=== PATIENT | female | born 1965 | race Caucasian/White ===

== ENCOUNTER → 2016-08-15 | Outpatient (REF) | payer BC ==
[2016-08-15 18:12] LABS: FERRITIN 214 NG/ML (8-252); PERCENT SATURATION 25.6 % (13.2-37.4); TOTAL IRON BINDING CAPACITY 359 UG/DL (250-450); TOTAL PROTEIN 7.1 GM/DL (6.4-8.2)
[2016-08-19 11:15] LABS: ALBUMIN 4.19 GM/DL (3.29-5.55); GAMMA GLOBULIN % 18.7 % (11.1-18.8)
[2016-08-20 14:14] LABS: FREE KAPPA LIGHT CHAINS SERUM 16.1 mg/L (3.30-19.40); FREE LAMBDA LIGHT CHAINS SERUM 19.36 mg/L (5.71-26.30); KAPPA/LAMBDA RATIO SERUM 0.83 (0.26-1.65)
== END ==
LOC: M LAB REF 16:58
PROVIDERS: ATTEND Internal Medicine Medical Oncology
DX: R93.0 Abnormal findings on diagnostic imaging of skull and head, not elsewhere classified (principal)

== ENCOUNTER → 2017-01-02 | Outpatient (CLI) | payer BC ==
--- NOTE | 2017-01-02 14:55 | REPMRS ---
Patient History The patient states she had a clinical breast exam in 12/2016. Family history of breast cancer in maternal cousin at age 50 or over. Reductions of both breasts, July 05, 2016. Benign ultrasound-guided FNA biopsy of the right breast, 2001. Digital Woman Screen Mammo: January 02, 2017 - Exam #: [id number] Bilateral CC and MLO view(s) were taken. Technologist: Lynn Bryant, Technologist Prior study comparison: September 07, 2015, left breast digital mammo diagnostic unilateral, performed at [facility]. September 04, 2015, digital woman screen mammo performed at [facility]. FINDINGS: The breast tissue is heterogeneously dense. This may lower the sensitivity of mammography. There has been no change in the appearance of the mammogram from the prior studies. There is a moderate amount of residual fibroglandular tissue which is fairly symmetric. There is no interval development of dominant mass, areas of architectural distortion, or clustered microcalcification typical of malignancy. ASSESSMENT: BI-RADS/ACR category 1 mammogram. Negative. Recommendation Routine screening mammogram in 1 year (for women over age 40). This mammogram was interpreted with the aid of an FDA-approved computer-aided dectection system. Electronically Signed By: Tae Wang MD 01/02/17 [id number]
== END ==
LOC: M WHC 13:40
PROVIDERS: ATTEND Nurse Practitioner Women's Health
DX: Z12.31 Encounter for screening mammogram for malignant neoplasm of breast (principal)

== ENCOUNTER → 2017-02-22 | Outpatient (REF) | payer BC | LOC: M LAB REF 17:16 | PROVIDERS: ATTEND Physician Assistant Medical | DX: N30.01 Acute cystitis with hematuria (principal) ==

== ENCOUNTER → 2017-10-07 | Outpatient (REF) | payer BC ==
[2017-10-07 19:54] LABS: BASO # 0.1 10^3/uL (0.0-0.2); BASO % 1.1 % (0.0-1.0); EOS # 0.2 10^3/uL (0.0-0.50); EOS % 2.4 % (0.0-3.0); HEMATOCRIT 49.4 % (36.0-47.0); HEMOGLOBIN 15.7 g/dl (12.0-16.0); IMMATURE GRANULOCYTE % 0.5 % (0-3.0); LYMPH # 3.3 10^3/uL (1.5-4.5); LYMPH % 42.2 % (24.0-44.0); MEAN CORPUSCULAR HEMOGLOBIN 29.4 pg (27.0-33.0); MEAN CORPUSCULAR HGB CONC 31.8 g/dl (32.0-36.5); MEAN CORPUSCULAR VOLUME 92.5 fl (80.0-96.0); MONO # 0.5 10^3/uL (0.0-0.8); MONO % 6.2 % (0.0-5.0); NEUTROPHILS # 3.7 10^3/uL (1.8-7.7); NEUTROPHILS % 47.6 % (36.0-66.0); PLATELET COUNT, AUTOMATED 336 10^3/uL (150-450); RED BLOOD COUNT 5.34 10^6/uL (4.00-5.40); RED CELL DISTRIBUTION WIDTH 12.6 % (11.5-14.5); WHITE BLOOD COUNT 7.9 10^3/uL (4.0-10.0)
[2017-10-07 20:20] LABS: ALBUMIN 4.1 GM/DL (3.2-5.2); ALBUMIN/GLOBULIN RATIO 1.14 (1.00-1.93); ALKALINE PHOSPHATASE 73 U/L (45-117); ALT/SGPT 24 U/L (12-78); ANION GAP 6 MEQ/L (8-16); AST/SGOT 17 U/L (7-37); BILIRUBIN,TOTAL 0.6 MG/DL (0.2-1.0); BLOOD UREA NITROGEN 12 MG/DL (7-18); CALCIUM LEVEL 8.7 MG/DL (8.5-10.1); CARBON DIOXIDE LEVEL 29 MEQ/L (21-32); CHLORIDE LEVEL 108 MEQ/L (98-107); CHOLESTEROL LEVEL 205 MG/DL (<200); CHOLESTEROL RISK RATIO 3.306 (<5); CREATININE FOR GFR 0.88 MG/DL (0.55-1.30); FREE T4 0.95 NG/DL (0.76-1.46); GLOMERULAR FILTRATION RATE > 60.0 (>51); GLUCOSE, FASTING 89 MG/DL (70-100); HDL CHOLESTEROL 62 MG/DL (>40); LDL CHOLESTEROL 126.6 MG/DL (<100); NON-HDL-C 143 MG/DL; POTASSIUM SERUM 4.4 MEQ/L (3.5-5.1); SODIUM LEVEL 143 MEQ/L (136-145); TOTAL PROTEIN 7.7 GM/DL (6.4-8.2); TRIGLYCERIDES LEVEL 82 MG/DL (<150)
== END ==
LOC: M LABDRWAD 19:24
DX: Z13.29 Encounter for screening for other suspected endocrine disorder (principal); Z13.0 Encounter for screening for diseases of the blood and blood-forming organs and certain disorders involving the immune mechanism; Z13.220 Encounter for screening for lipoid disorders
CPT/HCPCS: 84443

== ENCOUNTER → 2018-01-05 | Outpatient (CLI) | payer BC | LOC: M WHC 08:04 | DX: Z12.31 Encounter for screening mammogram for malignant neoplasm of breast (principal); Z98.890 Other specified postprocedural states | CPT/HCPCS: 77067 ==

== ENCOUNTER → 2019-01-06 | Outpatient (CLI) | payer BC ==
--- NOTE | 2019-01-06 09:41 | REPMRS ---
Patient History The patient states she had a clinical breast exam in 12/2018. Family history of breast cancer at age 60 in paternal aunt. Reductions of both breasts, July 05, 2016. Benign ultrasound-guided FNA biopsy of the right breast, 2001. No Hormone Replacement Therapy Digital Woman Screen Mammo: January 06, 2019 - Exam #: [id number] Bilateral CC and MLO view(s) were taken. Technologist: Lynn Bryant, Technologist Prior study comparison: January 05, 2018, bilateral digital woman screen mammo performed at [facility]. January 02, 2017, digital woman screen mammo performed at [facility]. September 04, 2015, digital woman screen mammo performed at [facility]. FINDINGS: The breast tissue is heterogeneously dense. This may lower the sensitivity of mammography. There is a moderate amount of heterogeneously dense fibroglandular tissue which is fairly symmetric. There is no interval development of dominant mass, architectural distortion, or grouped microcalcification typical of malignancy. There has been no change in the appearance of the mammogram from the prior studies. 3-D tomosynthesis shows no additional findings. Assessment: BI-RADS/ACR category 1 mammogram. Negative Mammogram. Recommendation Routine screening mammogram of both breasts in 1 year (for women over age 40). This patient's Lifetime Breast Cancer RIsk is estimated at 13.3 %. This mammogram was interpreted with the aid of an FDA-approved computer-aided dectection system. Electronically Signed By: Augustus Lezama MD 01/06/19 0941
== END ==
LOC: M WHC 08:10
PROVIDERS: ATTEND Nurse Practitioner Women's Health
DX: Z12.31 Encounter for screening mammogram for malignant neoplasm of breast (principal)

== ENCOUNTER 2019-01-29 16:30 | Observation (INO) | payer BC ==
[~2019-01-29] VITALS: Ht 160 cm; Wt 70.3 kg
--- NOTE | 2019-01-29 17:20 | REPVR ---
EXAM: CT Head Without Contrast EXAM DATE/TIME: 01/29/2019 5:07 PM CLINICAL HISTORY: 53 years old, female; Pain; Numbness / parasthesia; Right; Headache not specified; Additional info: Right-sided facial numbness/headache TECHNIQUE: Imaging protocol: Computed tomography images of the head without contrast. Radiation optimization: All CT scans at this facility use at least one of these dose optimization techniques: automated exposure control; mA and/or kV adjustment per patient size (includes targeted exams where dose is matched to clinical indication); or iterative reconstruction. COMPARISON: No relevant prior studies available. FINDINGS: Brain: Normal. No hemorrhage. Unremarkable white matter. No mass effect. Ventricles: Normal. No ventriculomegaly. Bones/joints: There is hyperostosis frontalis interna. Sinuses: Visualized sinuses are unremarkable. No fluid levels. Mastoid air cells: Visualized mastoid air cells are well aerated. No mastoid effusion. Soft tissues: Unremarkable. IMPRESSION: No acute findings. Electronically signed by: Diaz Isabel On 01/29/2019 17:20:20 PM
[2019-01-29] MEDS ORDERED: ACETAMINOPHEN 500 MG TAB PO ONE (18:15)
[2019-01-29] MEDS ORDERED: NS 1,000 ML IV ONE (18:15)
[2019-01-29 18:39] LABS: BASO # 0.1 10^3/uL (0.0-0.2); BASO % 0.9 % (0.0-1.0); EOS # 0.2 10^3/uL (0.0-0.50); EOS % 2.2 % (0.0-3.0); HEMATOCRIT 46.1 % (36.0-47.0); HEMOGLOBIN 15.4 g/dl (12.0-15.5); LYMPH # 3.3 10^3/uL (1.5-4.5); LYMPH % 35.1 % (24.0-44.0); MEAN CORPUSCULAR HEMOGLOBIN 30.4 pg (27.0-33.0); MEAN CORPUSCULAR HGB CONC 33.4 g/dl (32.0-36.5); MEAN CORPUSCULAR VOLUME 91.1 fl (80.0-96.0); MONO # 0.6 10^3/uL (0.0-0.8); MONO % 6.8 % (0.0-5.0); NEUTROPHILS # 5.1 10^3/uL (1.8-7.7); NEUTROPHILS % 54.7 % (36.0-66.0); PLATELET COUNT, AUTOMATED 297 10^3/uL (150-450); RED BLOOD COUNT 5.06 10^6/uL (4.00-5.40); WHITE BLOOD COUNT 9.4 10^3/uL (4.0-10.0)
[2019-01-29 19:00] LABS: ERYTHROCYTE SEDIMENTATION RATE 5 mm/hr (0-30)
[2019-01-29 19:16] LABS: ALBUMIN 3.8 GM/DL (3.2-5.2); ALT/SGPT 26 U/L (12-78); BILIRUBIN,DIRECT < 0.1 MG/DL (0.0-0.2); BILIRUBIN,TOTAL 0.2 MG/DL (0.2-1.0); BLOOD UREA NITROGEN 12 MG/DL (7-18); CALCIUM LEVEL 9.3 MG/DL (8.5-10.1); CARBON DIOXIDE LEVEL 28 MEQ/L (21-32); CHLORIDE LEVEL 107 MEQ/L (98-107); CHOLESTEROL LEVEL 176 MG/DL (<200); CHOLESTEROL RISK RATIO 2.626 (<5); CK-MB VALUE MASS < 1.0 NG/ML (<3.6); CPK CREATINE PHOSPHOKINASE 54 U/L (26-192); GLOMERULAR FILTRATION RATE > 60.0 (>51); GLUCOSE, FASTING 100 MG/DL (70-100); HDL CHOLESTEROL 67 MG/DL (>40); LDL CHOLESTEROL 87 MG/DL (<100); MB/CK RELATIVE INDEX 1.85 (< OR =4); NON-HDL-C 109 MG/DL; POTASSIUM SERUM 4.3 MEQ/L (3.5-5.1); SODIUM LEVEL 143 MEQ/L (136-145); TOTAL PROTEIN 7.3 GM/DL (6.4-8.2); TRIGLYCERIDES LEVEL 109 MG/DL (<150); TROPONIN I < 0.02 NG/ML (< 0.10)
--- NOTE | 2019-01-29 20:14 | REPVR ---
EXAM: MR Head Without Contrast EXAM DATE/TIME: 01/29/2019 7:53 PM CLINICAL HISTORY: 53 years old, female; Numbness / parasthesia and weakness, extremity and weakness, facial; Left; Additional info: Right sided numbness to face and rue, TIA? TECHNIQUE: Imaging protocol: MR of the head without contrast. COMPARISON: CT Head without contrast 01/29/2019 5:06 PM FINDINGS: Brain: Diffuse abnormal signal in the subcortical centrum semiovale and periventricular white matter which in the absence of significant white matter disease but reflect global right matter ischemia. Few small scattered foci of T2 lengthening in the periventricular white matter of uncertain significance. Ventricles: Normal. No ventriculomegaly. Bones/joints: Unremarkable. Soft tissues: Normal. Sinuses: Normal as visualized. No acute sinusitis. Mastoid air cells: Normal as visualized. No mastoid effusion. Orbits: Unremarkable. IMPRESSION: Diffuse abnormal signal in the subcortical centrum semiovale and periventricular white matter which in the absence of significant white matter disease but reflect global right matter ischemia. Electronically signed by: Diaz Isabel On 01/29/2019 20:14:15 PM
--- NOTE | 2019-01-29 20:22 | REPVR ---
EXAM: MR Angiogram Head Without Contrast, Arteries EXAM DATE/TIME: 01/29/2019 7:53 PM CLINICAL HISTORY: 53 years old, female; Paralysis, transient of limb and weakness; Additional info: Right sided numbness to face and rue, TIA? TECHNIQUE: Imaging protocol: MR angiogram head without contrast. Exam focused on the arteries. 3D rendering: MIP reconstructed images were created and reviewed. COMPARISON: CT Head without contrast 01/29/2019 5:06 PM FINDINGS: Right internal carotid artery: Unremarkable. Intracranial segment is patent with no significant stenosis. No aneurysm. Right anterior cerebral artery: Unremarkable. No occlusion or significant stenosis. No aneurysm. Right middle cerebral artery: Unremarkable. No occlusion or significant stenosis. No aneurysm. Right posterior cerebral artery: Unremarkable. No occlusion or significant stenosis. No aneurysm. Right vertebral artery: Unremarkable. No occlusion or significant stenosis. No aneurysm. Left internal carotid artery: Unremarkable. Intracranial segment is patent with no significant stenosis. No aneurysm. Left anterior cerebral artery: Unremarkable. No occlusion or significant stenosis. No aneurysm. Left middle cerebral artery: Unremarkable. No occlusion or significant stenosis. No aneurysm. Left posterior cerebral artery: Unremarkable. No occlusion or significant stenosis. No aneurysm. Left vertebral artery: Unremarkable. No occlusion or significant stenosis. No aneurysm. Basilar artery: Unremarkable. No occlusion or significant stenosis. No aneurysm. IMPRESSION: No acute findings. Electronically signed by: Diaz Isabel On 01/29/2019 20:21:36 PM
[2019-01-29] MEDS: LORATADINE 10 MG TAB PO SCH (21:00)
[2019-01-29] MEDS: guaiFENesin ER 600 MG TAB PO SCH (21:00)
[2019-01-29] MEDS ORDERED: PERCOCET 5MG/325MG TAB PO ONE (21:00)
[2019-01-29] MEDS ORDERED: ATORVASTATIN 20 MG TAB PO SCH (21:00)
--- NOTE | 2019-01-29 21:21 | ECGEPIP ---
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
--- NOTE | 2019-01-29 21:41 | HPEPDOC ---
General Date of Admission 01/29/2019 Date of Service: Jan 29, 2019 Primary Care Physician: CONNOR POLLOCK DO Attending Physician: GREER FOX MD Chief Complaint The patient is a 53-year-old female admitted with a reason for visit of Neuro Symptoms. History of Present Illness Patient is a 53-year-old female, without any past medical history, presenting to the emergency room on account of right upper extremity weakness and numbness while shopping today. Patient states she was out shopping with friends when she had sudden onset of blurry vision, right facial numbness, with right arm numbness lasting about 20 minutes. During the event. She was unable to take out her credit card with her right hand and had to maintain her balance with a shop ping cart. She tried to return to work but was very tired, so went to the urgent care with her where she was redirected to the emergency room for further evaluation and management. Laboratory data was within normal limits, CT brain was negative, subsequent MRI was abnormal for signal intensity. However, there was no focal defect. Of note, patient states 7 weeks ago. Brother had spontaneous DVT, PE. He was evaluated for clotting abnormalities, results of those are still pending. She also reports father having a cardiac thrombus for which surgical intervention was aborted. On assessment, she complains only of headache, denies chest pain, shortness of breath, prior weakness, numbness, tingling has resolved. She also complains of postnasal drip with cough for about a week now. Home Medications No Active Prescriptions or Reported Meds Allergies Coded Allergies: No Known Drug Allergies (Verified Allergy, Unknown, 01/29/19) Past Medical History Medical History Denies prior medical history Surgical History Tubal ligation Breast reduction. Arthroplasty Breast biopsy Hysterectomy Family History Father: Hypertension, congenital heart defect, peripheral arterial disease. Mother: Arthritis. Sibling: DVT, PE Social History * Smoker: Denies Alcohol: Denies Drugs: denies A-FIB/CHADSVASC A-FIB History Current/History of A-Fib/PAF?: No Current PO Anticoag Therapy: No Review of Systems Other systems A pertinent 10 point review of systems is completed, negative except as stated in the history of presenting illness Physical Examination Other physical findings GENERAL: NAD SKIN : Warm, dry intact HEENT: Atraumatic, normocephalic, PERRL, moist mucous membrane CARDIOVASCULAR: Regular rate and rhythm, S1S2, no JVD, no edema, distal pulses + palpable RESP: Posterior crackles with cough, no accessory muscle use noted ABDOMEN: BS+ non distended non tender MS: no joint deformities NEURO: Alert and oriented x 3, CN2-12 grossly intact PSYCH: no anxiety or agitation, appropriate mood and affect. Vital Signs Vital Signs Date Time Temp Pulse Resp B/P (MAP) Pulse Ox O2 Delivery O2 Flow Rate FiO2 01/29/19 21:30 18 99 01/29/19 20:11 98.1 72 127/71 (89) Room Air Laboratory Data Labs 24H Laboratory Tests 2 01/29/19 18:33: Immature Granulocyte % (Auto) 0.3, White Blood Count 9.4, Red Blood Count 5.06, Hemoglobin 15.4, Hematocrit 46.1, Mean Corpuscular Volume 91.1, Mean Corpuscular Hemoglobin 30.4, Mean Corpuscular Hemoglobin Concent 33.4, Red Cell Distribution Width 12.9, Platelet Count 297, Neutrophils (%) (Auto) 54.7, Lymphocytes (%) (Auto) 35.1, Monocytes (%) (Auto) 6.8H, Eosinophils (%) (Auto) 2.2, Basophils (%) (Auto) 0.9, Neutrophils # (Auto) 5.1, Lymphocytes # (Auto) 3.3, Monocytes # (Auto) 0.6, Eosinophils # (Auto) 0.2, Basophils # (Auto) 0.1, Nucleated Red Blood Cells % (auto) 0.0, Erythrocyte Sedimentation Rate 5, Anion Gap 8, Glomerular Filtration Rate > 60.0, Calcium Level 9.3, Aspartate Amino Transf (AST/SGOT) 20, Alanine Aminotransferase (ALT/SGPT) 26, Alkaline Phosphatase 67, Total Bilirubin 0.2, Direct Bilirubin < 0.1, Total Creatine Kinase 54, Creatine Kinase MB < 1.0, Creatine Kinase MB Relative Index 1.85, Troponin I < 0.02, C- Reactive Protein, Quantitative 0.30, Total Protein 7.3, Albumin 3.8, Albumin/Globulin Ratio 1.09, Triglycerides Level 109, Total Cholesterol 176, LDL Cholesterol 87, Non-HDL Cholesterol (LDL + VLDL) 109, Total HDL Cholesterol 67, Cholesterol/HDL Ratio 2.626 CBC/BMP Laboratory Tests 01/29/19 18:33 Red Blood Count 5.06, Mean Corpuscular Volume 91.1, Mean Corpuscular Hemoglobin 30.4, Mean Corpuscular Hemoglobin Concent 33.4, Red Cell Distribution Width 12.9, Neutrophils (%) (Auto) 54.7, Lymphocytes (%) (Auto) 35.1, Monocytes (%) (Auto) 6.8 H, Eosinophils (%) (Auto) 2.2, Basophils (%) (Auto) 0.9, Neutrophils # (Auto) 5.1, Lymphocytes # (Auto) 3.3, Monocytes # (Auto) 0.6, Eosinophils # (Auto) 0.2, Basophils # (Auto) 0.1 Assessment/Plan TIA -CT brain negative for acute intracranial process. -MRI brain abnormal for signal intensity -2-D echocardiogram to evaluate for structural heart defects, rule out regional wall motion abnormalities -Carotid Doppler to evaluate for vascular competency - neurology will need to be consulted in the am for further input evaluation, recommendations -Place on aspirin, statin Cough -Possibly due to seasonal allergies -Start patient on antitussive DVT prophylaxis -Lovenox 40 mg daily Advanced care planning -CODE STATUS is full resuscitation -Anticipated discharge to home based on neurology recommendations, findings of 2-D echocardiogram and carotid Doppler Plan / VTE VTE Prophylaxis Ordered?: Yes RIYA LIN [facility] Jan 29, 2019 21:41
--- NOTE | 2019-01-29 22:48 | REPVR ---
EXAM: US Duplex Bilateral Extracranial Arteries EXAM DATE/TIME: 01/29/2019 10:34 PM CLINICAL HISTORY: 53 years old, female; Other: TIA TECHNIQUE: Imaging protocol: Real-time Duplex ultrasound scan of the Bilateral carotid and vertebral arteries combining martinez scale, color Doppler and spectral waveform analysis. COMPARISON: CT Head without contrast 01/29/2019 5:06 PM FINDINGS: Right common carotid artery: Unremarkable. No occlusion or stenosis. Waveforms are normal. Right internal carotid artery: Minimal atherosclerotic plaque in the bulb. No occlusion or stenosis. Waveforms are normal. Right ICA/CCA ratio: Within normal limits. Right external carotid artery: No stenosis in the origin. Right vertebral artery: Unremarkable. Antegrade flow Left common carotid artery: Unremarkable. No occlusion or stenosis. Waveforms are normal. Left internal carotid artery: Minimal atherosclerotic plaque in the bulb. No occlusion or stenosis. Waveforms are normal. Left ICA/CCA ratio: Within normal limits. Left external carotid artery: No stenosis in the origin. Left vertebral artery: Unremarkable. Antegrade flow. IMPRESSION: Minimal plaque in both carotid bulbs. No carotid arterial stenosis. COMMENT: Carotid Stenosis Reference using SRU criteria: Mild: less than 50% stenosis. ICA PSV is less than 125 cm/second and plaque or intimal thickening is visible. Moderate: 50-69% stenosis. ICA PSV is 125 to 230 cm/second and plaque is visible. Severe: 70-94% stenosis. ICA PSV is more than 230 cm/second and visible plaque and lumen narrowing are seen. Near occlusion: 95-99% stenosis. ICA PSV is variable and significant plaque and luminal narrowing are seen. Occluded: 100% stenosis. No flow identified. Electronically signed by: Diaz Isabel On 01/29/2019 22:47:12 PM
[2019-01-30 02:58] VITALS: BP 128/84
[2019-01-30 06:00] VITALS: BP 119/78
[2019-01-30 06:22] LABS: HEMATOCRIT 44.7 % (36.0-47.0); HEMOGLOBIN 14.9 g/dl (12.0-15.5); MEAN CORPUSCULAR HEMOGLOBIN 30.5 pg (27.0-33.0); MEAN CORPUSCULAR HGB CONC 33.3 g/dl (32.0-36.5); MEAN CORPUSCULAR VOLUME 91.6 fl (80.0-96.0); PLATELET COUNT, AUTOMATED 267 10^3/uL (150-450); RED BLOOD COUNT 4.88 10^6/uL (4.00-5.40); WHITE BLOOD COUNT 8.7 10^3/uL (4.0-10.0)
[2019-01-30 06:50] LABS: ALBUMIN 3.3 GM/DL (3.2-5.2); ALT/SGPT 23 U/L (12-78); BILIRUBIN,TOTAL 0.4 MG/DL (0.2-1.0); BLOOD UREA NITROGEN 9 MG/DL (7-18); CALCIUM LEVEL 8.2 MG/DL (8.5-10.1); CARBON DIOXIDE LEVEL 29 MEQ/L (21-32); CHLORIDE LEVEL 109 MEQ/L (98-107); CREATININE FOR GFR 0.72 MG/DL (0.55-1.30); GLOMERULAR FILTRATION RATE > 60.0 (>51); GLUCOSE, FASTING 97 MG/DL (70-100); POTASSIUM SERUM 4.4 MEQ/L (3.5-5.1); SODIUM LEVEL 141 MEQ/L (136-145); TOTAL PROTEIN 6.6 GM/DL (6.4-8.2)
[2019-01-30 08:43] LABS: INR 1.06; PROTHROMBIN TIME 13.5 SECONDS (11.8-14.0)
[2019-01-30] MEDS ORDERED: ENOXAPARIN 40 MG/0.4 ML SYRINGE (J1650) SC SCH (09:00)
[2019-01-30] MEDS ORDERED: ASPIRIN 81 MG ENTERIC TAB PO SCH (09:00)
[2019-01-30] MEDS: guaiFENesin ER 600 MG TAB PO SCH (10:24)
[2019-01-30] MEDS: LORATADINE 10 MG TAB PO SCH (10:24)
[2019-01-30] MEDS ORDERED: ACETAMINOPHEN TAB 650MG DOSE (2X325MG) PO PRN (11:00)
--- NOTE | 2019-01-30 13:59 | IPNPDOC ---
Subjective Date Seen The patient was seen on 01/30/19. Assessment /Plan Plan/VTE VTE Prophylaxis Ordered?: Yes VS, I&O, 24H, [place] Vital Signs/I&O Vital Signs Date Time Temp Pulse Resp B/P (MAP) Pulse Ox O2 Delivery O2 Flow Rate FiO2 01/30/19 06:00 97.9 71 19 119/78 (92) 98 01/30/19 01:10 Room Air I&O- Last 24 Hours up to 6 AM 01/30/19 06:00 Intake Total 200 ml Balance 200 ml Laboratory Data 24H LABS Laboratory Tests 2 01/29/19 18:33: Immature Granulocyte % (Auto) 0.3, White Blood Count 9.4, Red Blood Count 5.06, Hemoglobin 15.4, Hematocrit 46.1, Mean Corpuscular Volume 91.1, Mean Corpuscular Hemoglobin 30.4, Mean Corpuscular Hemoglobin Concent 33.4, Red Cell Distribution Width 12.9, Platelet Count 297, Neutrophils (%) (Auto) 54.7, Lymphocytes (%) (Auto) 35.1, Monocytes (%) (Auto) 6.8H, Eosinophils (%) (Auto) 2.2, Basophils (%) (Auto) 0.9, Neutrophils # (Auto) 5.1, Lymphocytes # (Auto) 3.3, Monocytes # (Auto) 0.6, Eosinophils # (Auto) 0.2, Basophils # (Auto) 0.1, Nucleated Red Blood Cells % (auto) 0.0, Erythrocyte Sedimentation Rate 5, Anion Gap 8, Glomerular Filtration Rate > 60.0, Calcium Level 9.3, Aspartate Amino Transf (AST/SGOT) 20, Alanine Aminotransferase (ALT/SGPT) 26, Alkaline Phosphatase 67, Total Bilirubin 0.2, Direct Bilirubin < 0.1, Total Creatine Kinase 54, Creatine Kinase MB < 1.0, Creatine Kinase MB Relative Index 1.85, Troponin I < 0.02, C- Reactive Protein, Quantitative 0.30, Total Protein 7.3, Albumin 3.8, A lbumin/Globulin Ratio 1.09, Triglycerides Level 109, Total Cholesterol 176, LDL Cholesterol 87, Non-HDL Cholesterol (LDL + VLDL) 109, Total HDL Cholesterol 67, Cholesterol/HDL Ratio 2.626 01/30/19 05:30: Nucleated Red Blood Cells % (auto) 0.0, Anion Gap 3L, Glomerular Filtration Rate > 60.0, Calcium Level 8.2L, Aspartate Amino Transf (AST/SGOT) 13, Alanine Aminotransferase (ALT/SGPT) 23, Alkaline Phosphatase 59, Total Bilirubin 0.4#, Total Protein 6.6, Albumin 3.3, Albumin/Globulin Ratio 1.00, Blood Urea Nitrogen 9, Creatinine 0.72, Sodium Level 141, Potassium Level 4.4, Chloride Level 109H, Carbon Dioxide Level 29 01/30/19 08:12: Prothrombin Time 13.5, Prothromb Time International Ratio 1.06 CBC/BMP Laboratory Tests 01/29/19 18:33 Red Blood Count 5.06, Mean Corpuscular Volume 91.1, Mean Corpuscular Hemoglobin 30.4, Mean Corpuscular Hemoglobin Concent 33.4, Red Cell Distribution Width 12.9, Neutrophils (%) (Auto) 54.7, Lymphocytes (%) (Auto) 35.1, Monocytes (%) (Auto) 6.8 H, Eosinophils (%) (Auto) 2.2, Basophils (%) (Auto) 0.9, Neutrophils # (Auto) 5.1, Lymphocytes # (Auto) 3.3, Monocytes # (Auto) 0.6, Eosinophils # (A uto) 0.2, Basophils # (Auto) 0.1 01/30/19 05:30 Red Blood Count 4.88, Mean Corpuscular Volume 91.6, Mean Corpuscular Hemoglobin 30.5, Mean Corpuscular Hemoglobin Concent 33.3, Red Cell Distribution Width 12.8, Calcium Level 8.2 L, Aspartate Amino Transf (AST/SGOT) 13, Alanine Aminotransferase (ALT/SGPT) 23, Alkaline Phosphatase 59, Total Bilirubin 0.4 #, Total Protein 6.6, Albumin 3.3 SANDY OROZCO PGY-1 Jan 30, 2019 13:59
[2019-01-30 14:00] VITALS: BP 128/65
--- NOTE | 2019-01-31 07:31 | REP ---
MRI CERVICAL SPINE: Multiple sequences obtained in the sagittal and axial planes without the use of intravenous contrast material. There is no compression fracture of the cervical vertebral bodies, which are well aligned. There is mild disc space narrowing at C5-6 with disc degeneration at that level. Other disc spaces maintained their height. No abnormal signal is seen in the cervical spine cord. At the C5-6 level, there is moderate diffuse disc bulging and uncovertebral spurring. There is mild to moderate spinal stenosis with effacement of the subarachnoid space and slight flattening of the cord. There is mild to moderate right-sided foraminal narrowing as well. Other levels demonstrate no significant disc bulging or herniation and no evidence of spinal stenosis or significant neural foraminal narrowing. Impression: At C5-6 level, there is moderate diffuse disc bulging and uncovertebral spurring with mild to moderate spinal stenosis and right-sided foraminal narrowing. Electronically Signed by Tae Wang MD 01/31/2019 10:23 P
--- NOTE | 2019-01-31 09:34 | ECHO ---
DATE OF SERVICE: 01/30/2019 AGE: 53. REFERRING PROVIDER: DHIRAJ Ramsey PATIENT LOCATION: Room 4235. REASON FOR THE STUDY: Transient ischemic attack (TIA). 2D MEASUREMENTS: IVS: 0.8 cm LV: 4.6 cm LVPW: 0.8 cm LA: 3.1 cm Aorta: 2.9 cm RV: 2.5 cm IVC: 1.4 cm DOPPLER MEASUREMENTS: Peak velocity across the aortic valve: 1.2 m/s Peak velocity across the LVOT: 0.71 m/s Mitral E: 0.53 Mitral A: 0.63 with a ratio of 0.9 2D COMMENTS: 1. Normal left ventricular size, wall thickness, and normal global left ventricular systolic function. The estimated ventricular systolic ejection fraction is 60% to 65%. 2. Normal left atrium. Normal right atrium and right ventricle. 3. The atrial septum appeared to be normal without evidence of defect or shunt. 4. Normal aortic root. 5. No pericardial effusion seen. 6. Normal aortic valve. Mildly calcified mitral annulus with normal anterior mitral valve leaflet motion. Normal tricuspid valve and pulmonic valve. 7. The inferior vena cava was normal in size, central venous pressure is most likely normal. DOPPLER: No significant valvular abnormalities detected but trace mitral regurgitation and trace tricuspid regurgitation. Abnormal relaxation pattern was noted across the mitral valve leaflets, as well as the mitral valve annulus, consistent with features of grade 1 left ventricular diastolic dysfunction. IMPRESSION: 1. Normal global left ventricular systolic function. There are some features of left ventricular diastolic dysfunction manifested by abnormal relaxation. 2. Mitral annulus calcification with trace mitral regurgitation. 3. Trace tricuspid regurgitation. MTDD
--- NOTE | 2019-01-31 14:01 | CR ---
DATE OF CONSULTATION: 01/30/2019 CONSULTATION REQUESTED BY: DHIRAJ Miller. REASON FOR CONSULTATION: Right upper extremity weakness, numbness and blurry vision. HISTORY OF PRESENT ILLNESS: This is a 53-year-old female with no pertinent past medical history presenting to the emergency room on the evening prior for right upper extremity weakness, numbness and vision change earlier in the afternoon yesterday. She states that lasted about relatively 20 minutes. It started out when she was shopping with her friend and she noted a zig-zagged pattern vision change on her right eye. As time progressed, she noticed numbness and tingling sensation in her right fingertips that started to migrate up towards her neck and face. She denies having any weakness in her upper extremity though or other facial droop. She attempted to return to work later that afternoon but because the numbness, tingling, and headache progressed, she decided to go to the urgent care for further evaluation. The recommended from the urgent care to come to the emergency room for further recommendations. She states that her headache, which started after the numbness and tingling and the blurry vision changes was rating at a 4/5. She states that she always gets this during a sinus infection but she denies any histories of migraines. She denies any family history of migraines as well. She denies any focal deficits or any paresthesia in her lower extremity. In the emergency room, CT imaging was negative for an acute stroke. MRI was negative for acute stroke as well. She states that her headache got better earlier this morning. When she was given Tylenol, it went down from a 4-5 to a 1 to a complete 0 after 2 hours. She states that her vision changes and her paresthesia in the right upper extremity has resolved as well. Since she got to the emergency room. PAST MEDICAL HISTORY: None. HOME MEDICATIONS: None. ALLERGIES: No known drug allergies. PAST SURGICAL HISTORY: section. Tubal ligation. Breast reduction. Arthroplasty of the right thumb. Breast biopsy. Hysterectomy. FAMILY HISTORY: Father, hypertension and congenital heart disease, peripheral artery disease. Mother, arthritis. Brother deep venous thrombosis (DVT) and pulmonary embolism. SOCIAL HISTORY: Denies smoking, alcohol or drug use. REVIEW OF SYSTEMS: Denies any weight changes, fever, chills, night sweats, fatigue, malaise. HEENT: Denies ear pain. Admits to sinus congestion, nasal congestion. Denies sore throat, rhinorrhea. Admits to blurry vision in the right eye but no eye pain, swelling redness, or discharge. CARDIOVASCULAR: Denies chest pain, shortness of breath, paroxysmal nocturnal dyspnea (PND), dyspnea on exertion, orthopnea or lower extremity edema. RESPIRATION: Denies cough, sputum, wheezing, smoking history or dyspnea. GASTROINTESTINAL: Denies nausea, vomiting, diarrhea, constipation or abdominal pain. MUSCULOSKELETAL: Denies arthralgia, myalgia, weakness or neck pain. NEUROLOGY: Denies weakness, admits to upper extremity numbness and paresthesia. Denies loss of consciousness, syncope, dizziness, headaches, muscle coordination or recent falls. HEMATOLOGY: Denies bruising or easy bleeding or lymphadenopathy. PHYSICAL EXAMINATION: VITALS: Temperature 97.0, pulse 78, respirations 16, blood pressure 128/65, (86), pulse oximetry 100% in room air. GENERAL: This a very pleasant 53-year-old female who does not appear in any acute distress sitting up on a bed appropriately answering questions. Alert and oriented times three. HEENT: Atraumatic, normocephalic. Pupils equal, round, and reactive. Moist mucous membranes. CARDIOVASCULAR: Regular rate and rhythm. S1, S2 sounds are present. No jugular venous distention (JVD). No lower extremity edema. RESPIRATIONS: Clear to auscultation bilaterally. No audible wheezing, rhonchi, or rales. No accessory muscle use. ABDOMEN: Positive bowel sounds in all four quadrants. Nondistended. Nontender. NEUROLOGY: Alert and oriented times three. Cranial nerves II through XII are grossly intact bilaterally. Muscle strength upper and lower extremity 5/5 with normal deep tendon reflexes (DTR) 2+ in the upper and lower extremities as well. No sensory deficits noted. Lillie test positive to the right. LABORATORY DATA: WBC 8.6, hemoglobin 14.9, hematocrit 44.7, platelets 267. Chemistries: Sodium 141, potassium 4.4, chloride 109, carbon dioxide 29, anion gap 3, BUN 9, creatinine 0.72, fasting glucose 97, calcium 8.2. CMP is within normal limits. IMAGING: CT of the head, brain MRI, brain MRA and vascular ultrasound was negative for any acute stroke. It was only positive for minimal plaque in both carotid bulbs but no carotid atrial stenosis. Cervical spine MRI was reviewed by me and Dr. Angela, which does show a right disc herniation at the C5-6 area. Official report is currently still pending. ASSESSMENT/PLAN: This is a 53-year-old female with no pertinent past medical history who presented to the emergency room for right upper extremity paresthesia and vision changes followed by headache. These are the following recommendations: 1. Transient hemiparesthesia of the right upper extremity is positional in nature, possibly a prodrome to her migraines. I believe the patient has a complex migraine with aura and her transient hemiparesis is prodrome from cortical depression. Recommendations include to stop Lipitor and aspirin. Her symptoms resolved with actual Tylenol early this afternoon. Can continue with Tylenol as needed for headaches. If they become more recurrent in nature, can be evaluated by Neurology outpatient for other therapy. I believe the patient is stable to actually be discharged today and can just followup with neurology outpatient in 2-3 weeks. 2. Incidental finding on the cervical spine shows a C5-6 disc herniation with radiculopathy. Lillie test was positive to the right. Symptoms are reproducible with the test and not at all times. Advised the patient to look out for symptoms of upper extremity weakness as well and progression of the paresthesia from the right upper extremity down to her fingers versus a upper progression from fingers to neck. She will followup with the neurology outpatient in 2-3 weeks. 3. Insomnia: Patient is complaining of incidence of insomnia. Do recommend melatonin 3-5 mg as needed at bedtime to help her with sleep. She is agreeable to this plan.
--- NOTE | 2019-02-01 07:42 | CR ---
DATE OF CONSULTATION: 01/30/2019 REFERRING PROVIDER: Dr. June Curiel REASON FOR CONSULTATION: Suspected transient ischemic attack (TIA) versus complex migraine. HISTORY: Marge Martinez is a 53-year-old female who presented to [facility] while experiencing new symptoms of blurred vision in her right eye associated with paresthesias of her right hand traveling up her arm over a span of several minutes and totally resolving after 20 minutes followed by a dull headache. The patient was admitted to the hospital. MRI of the brain confirmed that there is no acute stroke. The patient likely had an ocular migraine. She describes the visual blurriness preceded by some zigzag lines in the right visual rojas. The patient denies any numbness, weakness, difficulty with balance, vertigo, dysarthria, dysphasia at this time. She denies any headache. She states she has never had migraines before. HOME MEDICATIONS: None. ALLERGIES: No known drug allergies. FAMILY HISTORY: Sibling with deep vein thrombosis (DVT), pulmonary embolism (PE). Father with hypertension, congenital heart defect, peripheral arterial disease. Mother with arthritis. PAST MEDICAL HISTORY: Noncontributory. PAST SURGICAL HISTORY: . Tubal ligation. Breast reduction. Arthroplasty. Breast biopsy. REVIEW OF SYSTEMS: 14-point review of systems obtained and was negative except as per HPI. PHYSICAL EXAMINATION: Blood pressure is 128/65, pulse rate is 78, respiratory rate is 16, temperature is 97.8 degrees Fahrenheit, oxygenation 100% on room air. Current height is 5 feet 3 inches. Current weight 70 kg. The patient is awake, alert, oriented to person, place and time. Speech, language comprehension and repetition are intact. Pupils are 3 mm round, reactive to light. Deep tendon reflexes are 2+ throughout. Romberg testing completed and is negative. Pupils are 3 mm round, reactive to light. Extraocular movements are intact in all directions without nystagmus. Sensation V1, V2, V3 is intact to light touch. No facial asymmetry to activation. Palate elevates symmetrically. Tongue is midline. No weakness of the sternocleidomastoids bilaterally. Hearing is subjectively equal to finger rub. There is no pronator drift. Strength is 5/5 including bilateral deltoids, biceps, triceps, handgrip, iliopsoas, quadriceps, anterior tibialis. Deep tendon reflexes are 2+ throughout. Romberg testing completed and was negative. Coordination normal [id number] without any signs of ataxia or dysmetria. Gait is normal. ASSESSMENT: 1. Complex migraine with aura. Visual zigzag lines noted in the visual field of the right eye associated with cortical depression, sensory paresthesias traveling up the right arm preceding the headache. 2. MRI has already shown no stroke. PLAN: 1. I do not believe at this time that the patient has had a TIA given the constellation of neurological symptoms being consistent with a complex migraine. I did not recommend continuation of aspirin for therapy. The patient should follow-up in the [facility] Neurology clinic as an outpatient. She has returned back to baseline at this time. Since migraines are far and few in between, I would recommend use of Excedrin migraine at the onset of a migraine headache or visual disturbance like this. Hold off on other abortive therapies at this time.
[2019-02-02 00:07] LABS: Lyme Disease IgG/IgM Antibodie <0.91 ISR (0.00-0.90); Lyme Disease IgM Ab Quantitati <0.80 index (0.00-0.79)
--- NOTE | 2019-02-13 19:07 | DS.PDOC ---
Discharge Summary General Date of Admission Jan 29, 2019 at 16:31 Date of Discharge 01/30/2019 Attending Physician: LESLIE ALVARADO MD Specialist/Consultants Involve: CHANTEL MONTERO MD Discharge Summary PROCEDURES PERFORMED DURING STAY: None ADMITTING DIAGNOSES: 1. Suspected transient ischemic attack DISCHARGE DIAGNOSES: 1. Complex migraine with aura. 2. C5-6 disc herniation. 3. Insomnia COMPLICATIONS/CHIEF COMPLAINT: TIA HISTORY OF PRESENT ILLNESS: Marge is a 53-year-old female with no pertinent past medical history who presented to the emergency department on the evening of Friday, 01/29 with the chief complaint of right upper extremity numbness and vision changes in her right eye that occurred early in the afternoon. She says her symptoms were present for about 20 minutes. They began when she was shopping with a friend and she saw a zigzag pattern visual change in her right eye. As time went on, she also noticed accompanying numbness and tingling in her right fingertips that began to move proximally up to her face and neck. She denied experiencing any weakness in her upper extremity or accompanying facial droop. She tried to return to work later in the afternoon of 01/29 but due to her paresthesias and a progressing headache. She chose to go to urgent care for more workup instead. Urgent care recommended that she go to the emergency room immediately. Her headache started after she experienced the tingling and numbness in the right upper extremity and visual changes in the right eye. She describes the headache as a 4 or 5 on a scale of 1-10. She mentions that she gets similar headaches during sinus infections but denies any known history of migraines. She also denies any family history of migraines. In addition, she denies any paresthesia in her lower extremities or any focal deficits. Emergency department, CT and MRI imaging was negative for acute stroke. Her headache got better by early on the morning of 01/30. She was given Tylenol and she says the headache improved from the 4 or 5 to a 1, and then completely resolved 2 hours after taking the Tylenol. Vision changes and paresthesia of the right upper extremity resolved when she presented to the emergency department. HOSPITAL COURSE: Marge was given a single tablet of Percocet 325 mg and a single dose of acetaminophen 1000 mg po for her headache and general pain. She was also started on daily aspirin 81 mg for antiplatelet coverage, acetaminophen 650 mg every 4 hours as needed for pain/headache, and daily Lovenox 40 mg sc for DVT prophylaxis. She underwent extensive imaging in the hospital that revealed no acute stroke, yet an overnight brain MRI reading from virtual radiology had a possible concerning impression. The hospitalist team contacted the neurology team to assess their thoughts on the aforementioned brain MRI. Neurology recommended hospitalist team speak directly with the in-house radiologist and go assess the brain MRI images again. In-house radiologist performed a second reading and stated the hospitalist team should correlate with current clinical findings to truly rule in or rule out stroke. Hospitalist team reassessed the patient neurologically and found no focal deficits or clinical signs of stroke. At this point, acute stroke was ruled out. Neurology assessed the patient on 01/12 and deemed her symptoms were due to a complex migraine with aura. Neurology recommended discontinuing aspirin, use of Excedrin Migraine at the onset of visual disturbances or migraine headache, and an outpatient follow-up. DISCHARGE MEDICATIONS: Please see below. ALLERGIES: Please see below. PHYSICAL EXAMINATION ON DISCHARGE: VITAL SIGNS: Please see below. GENERAL: This a very pleasant 53-year-old female who does not appear in any acute distress sitting up on a bed appropriately answering questions. Alert and oriented times three. HEENT: Atraumatic, normocephalic. Pupils equal, round, and reactive. Moist mucous membranes. CARDIOVASCULAR: Regular rate and rhythm. S1, S2 sounds are present. No jugular venous distention (JVD). No lower extremity edema. RESPIRATIONS: Clear to auscultation bilaterally. No audible wheezing, rhonchi, or rales. No accessory muscle use. ABDOMEN: Positive bowel sounds in all four quadrants. Nondistended. Nontender. NEUROLOGY: Alert and oriented times three. Cranial nerves II through XII are grossly intact bilaterally. Muscle strength upper and lower extremity 5/5 with normal deep tendon reflexes (DTR) 2+ in the upper and lower extremities as well. No sensory deficits noted. Lillie test positive to the right. LABORATORY DATA: Please see below. IMAGING: Head CT, 01/29- showed no acute findings Brain MRI, 01/29- showed diffuse abnormal signal in the subcortical centrum semiovale and periventricular white matter which in the absence of significant white matter disease but reflect global right matter ischemia. Vascular ultrasound, 01/29- showed minimal plaque in both carotid bulbs. No carotid arterial stenosis. Cervical spine MRI, 01/29- showed that at C5-6 level, there is moderate diffuse disc bulging and uncovertebral spurring with mild to moderate spinal stenosis and right-sided foraminal narrowing. Echocardiogram, 01/30 - showed normal global left ventricular systolic function. There are some features of left ventricular diastolic dysfunction manifested by abnormal relaxation. Mitral annulus calcification with trace mitral regurgitation. Trace tricuspid regurgitation. PROGNOSIS: Good ACTIVITY: As tolerated DIET: As tolerated DISPOSITION: 01 Home, Self-Care. DISCHARGE INSTRUCTIONS & ITEMS TO FOLLOWUP ON OUTPATIENT: 1. Follow-up with primary care physician in 7-10 days. 2. Follow-up at [facility] neurology clinic as an outpatient in 2-3 weeks. 3. Use Excedrin Migraine whenever feeling the onset of a migraine headache or onset of visual disturbances. 4. For insomnia, 3-5 mg of melatonin at night are recommended. 5. If patient's symptoms from this hospital stay should return or worsen, or in the event of an acute medical emergency of any kind, patient is encouraged to return to the emergency department. DISCHARGE CONDITION: Stable TIME SPENT ON DISCHARGE: 35 minutes Discharge Medications No Active Prescriptions or Reported Meds Allergies Coded Allergies: No Known Drug Allergies (Verified Allergy, Unknown, 01/29/19) Attending Note Attending Note I saw and examined the patient. I agree with the finding and the plan of care as documented in the resident's note. I spent 35 mins in counselling the patient and his and coordinating his discharge. SANDY OROZCO PGY-1 Feb 13, 2019 19:07 LESLIE ALVARADO MD Feb 21, 2019 22:41
== END 2019-01-30 18:40 | disposition home or self-care (01) ==
LOC: M ED 16:30 → M ED INP 16:31 → M MSPAV 01-30 02:58
PROVIDERS: ADMIT Internal Medicine; ATTEND Internal Medicine Nephrology
DX: G43.109 Migraine with aura, not intractable, without status migrainosus (principal); G47.00 Insomnia, unspecified; M50.122 Cervical disc disorder at C5-C6 level with radiculopathy
CPT/HCPCS: 36415; 70450; 70544; 70551; 72141; 80048; 80053; 80061; 80076; 82550; 82553; 84484; 85025; 85027; 85610; 85652; 86140; 86617; 93005; 93306; 93880; 96372; 96374; 97161; 99284; J1650

== ENCOUNTER → 2019-02-03 | Outpatient (REF) | payer BC | LOC: M LAB REF 12:15 | PROVIDERS: ATTEND Physician Assistant | DX: N39.0 Urinary tract infection, site not specified (principal) ==

== ENCOUNTER → 2019-07-28 | Outpatient (CLI) | payer BC ==
[2019-07-28 09:42] LABS: BASO # 0.1 10^3/uL (0.0-0.2); BASO % 0.9 % (0.0-1.0); EOS # 0.2 10^3/uL (0.0-0.5); EOS % 2.4 % (0.0-3.0); HEMATOCRIT 48.4 % (36.0-47.0); HEMOGLOBIN 15.5 g/dl (12.0-15.5); LYMPH # 2.4 10^3/uL (1.5-5.0); LYMPH % 37.1 % (24.0-44.0); MEAN CORPUSCULAR HEMOGLOBIN 29.2 pg (27.0-33.0); MEAN CORPUSCULAR VOLUME 91.3 fl (80.0-96.0); MONO # 0.5 10^3/uL (0.0-0.8); NEUTROPHILS # 3.4 10^3/uL (1.5-8.5); NEUTROPHILS % 52.1 % (36.0-66.0); PLATELET COUNT, AUTOMATED 261 10^3/uL (150-450); WHITE BLOOD COUNT 6.6 10^3/uL (4.0-10.0)
[2019-07-28 10:24] LABS: ALBUMIN 3.8 GM/DL (3.2-5.2); ALT/SGPT 24 U/L (12-78); BILIRUBIN,TOTAL 0.5 MG/DL (0.2-1.0); BLOOD UREA NITROGEN 16 MG/DL (7-18); CALCIUM LEVEL 8.6 MG/DL (8.5-10.1); CARBON DIOXIDE LEVEL 25 MEQ/L (21-32); CHLORIDE LEVEL 108 MEQ/L (98-107); CREATININE FOR GFR 0.65 MG/DL (0.55-1.30); GLOMERULAR FILTRATION RATE > 60.0 (>51); GLUCOSE, FASTING 94 MG/DL (70-100); POTASSIUM SERUM 4.6 MEQ/L (3.5-5.1); SODIUM LEVEL 140 MEQ/L (136-145); TOTAL PROTEIN 6.7 GM/DL (6.4-8.2)
[2019-07-28 10:42] LABS: TOTAL 25(OH) VITAMIN D 26.7 NG/ML (30.0-100.0)
[2019-07-28 11:11] LABS: VITAMIN B12 LEVEL 580 PG/ML
[2019-07-28 11:14] LABS: FOLATE 21.5 NG/ML
== END ==
LOC: M WUC 08:38
PROVIDERS: ATTEND Physician Assistant
DX: Z13.29 Encounter for screening for other suspected endocrine disorder (principal)

== ENCOUNTER → 2019-11-25 | Outpatient (REF) | payer BC ==
[2019-11-25 13:41] LABS: BASO # 0.1 10^3/uL (0.0-0.2); BASO % 1.1 % (0.0-1.0); EOS # 0.2 10^3/uL (0.0-0.5); EOS % 2.8 % (0.0-3.0); HEMATOCRIT 48.2 % (36.0-47.0); HEMOGLOBIN 16.1 g/dl (12.0-15.5); LYMPH # 3.1 10^3/uL (1.5-5.0); MEAN CORPUSCULAR HEMOGLOBIN 30.7 pg (27.0-33.0); MEAN CORPUSCULAR HGB CONC 33.4 g/dl (32.0-36.5); MONO # 0.5 10^3/uL (0.0-0.8); MONO % 7.1 % (0.0-5.0); NEUTROPHILS # 3.5 10^3/uL (1.5-8.5); NEUTROPHILS % 46.7 % (36.0-66.0); PLATELET COUNT, AUTOMATED 296 10^3/uL (150-450); RED BLOOD COUNT 5.24 10^6/uL (4.00-5.40); WHITE BLOOD COUNT 7.5 10^3/uL (4.0-10.0)
[2019-11-25 13:49] LABS: ALT/SGPT 25 U/L (12-78); BILIRUBIN,TOTAL 0.5 MG/DL (0.2-1.0); BLOOD UREA NITROGEN 22 MG/DL (7-18); CALCIUM LEVEL 8.9 MG/DL (8.5-10.1); CARBON DIOXIDE LEVEL 27 MEQ/L (21-32); CHLORIDE LEVEL 111 MEQ/L (98-107); CHOLESTEROL LEVEL 210 MG/DL (<200); CHOLESTEROL RISK RATIO 3.088 (<5); CREATININE FOR GFR 0.67 MG/DL (0.55-1.30); FREE T4 0.96 NG/DL (0.76-1.46); GLOMERULAR FILTRATION RATE > 60.0 (>51); GLUCOSE, FASTING 94 MG/DL (70-100); HDL CHOLESTEROL 68 MG/DL (>40); LDL CHOLESTEROL 122 MG/DL (<100); NON-HDL-C 142 MG/DL; POTASSIUM SERUM 4.8 MEQ/L (3.5-5.1); SODIUM LEVEL 141 MEQ/L (136-145); TOTAL PROTEIN 7.3 GM/DL (6.4-8.2); TRIGLYCERIDES LEVEL 101 MG/DL (<150)
[2019-11-25 13:50] LABS: TOTAL 25(OH) VITAMIN D 20.2 NG/ML (30.0-100.0)
== END ==
LOC: M LABDRWAD 12:25
PROVIDERS: ATTEND Family Medicine
DX: E55.9 Vitamin D deficiency, unspecified (principal); Z13.220 Encounter for screening for lipoid disorders; Z13.29 Encounter for screening for other suspected endocrine disorder; Z13.0 Encounter for screening for diseases of the blood and blood-forming organs and certain disorders involving the immune mechanism

== ENCOUNTER → 2020-02-21 | Outpatient (CLI) | payer BC ==
--- NOTE | 2020-03-09 11:34 | REPMRS ---
Patient History The patient states she had a clinical breast exam in 02/2019. Family history of breast cancer at age 60 in paternal aunt. Reconstructions of both breasts, November 2019. Reductions of both breasts, July 05, 2016. Benign ultrasound-guided FNA biopsy of the right breast, 2001. No Hormone Replacement Therapy Digital Woman Screen Mammo: February 21, 2020 - Exam #: [id number] Bilateral CC and MLO view(s) were taken. Technologist: Lolis Do, Technologist Prior study comparison: January 06, 2019, bilateral digital woman screen mammo performed at [facility]. January 05, 2018, bilateral digital woman screen mammo performed at [facility]. January 02, 2017, digital woman screen mammo performed at [facility]. FINDINGS: The breast tissue is heterogeneously dense. This may lower the sensitivity of mammography. The Volpara volumetric breast density category is: C. There is a moderate amount of heterogeneously dense fibroglandular tissue which is fairly symmetric. There is no interval development of dominant mass, architectural distortion, or grouped microcalcification typical of malignancy. There has been no change in the appearance of the mammogram from the prior studies. 3-D tomosynthesis shows no additional findings. Report was delayed due to a protracted computer network disruption experienced by this facility. Assessment: BI-RADS/ACR category 1 mammogram. Negative Mammogram. Recommendation Routine screening mammogram of both breasts in 1 year (for women over age 40). This patient's Lifetime Breast Cancer RIsk is estimated at 11.3 %. This mammogram was interpreted with the aid of an FDA-approved computer-aided dectection system. Electronically Signed By: Augustus Lezama MD 03/09/20 [id number]
== END ==
LOC: M WHC 05:35
PROVIDERS: ATTEND Nurse Practitioner Women's Health
DX: Z12.31 Encounter for screening mammogram for malignant neoplasm of breast (principal); Z80.3 Family history of malignant neoplasm of breast

== ENCOUNTER → 2020-08-04 | Outpatient (CLI) | payer SELFPAY | LOC: M LABSMTC 09:38 | PROVIDERS: ATTEND Pediatrics | DX: Z20.822 Contact with and (suspected) exposure to COVID-19 (principal) ==

== ENCOUNTER → 2020-09-06 | Outpatient (CLI) | payer SELFPAY | LOC: M LABSMTC 11:18 | PROVIDERS: ATTEND Pediatrics | DX: Z20.822 Contact with and (suspected) exposure to COVID-19 (principal) ==

== ENCOUNTER → 2020-09-24 | Outpatient (CLI) | payer SELFPAY | LOC: M LABSMTC 10:00 | PROVIDERS: ATTEND Pediatrics | DX: Z20.822 Contact with and (suspected) exposure to COVID-19 (principal) ==

== ENCOUNTER → 2020-11-15 | Outpatient (REF) | payer BC ==
[2020-11-15 12:41] LABS: BASO # 0.1 10^3/uL (0.0-0.2); BASO % 0.9 % (0.0-1.0); EOS # 0.3 10^3/uL (0.0-0.5); HEMATOCRIT 48.1 % (36.0-47.0); HEMOGLOBIN 15.6 g/dl (12.0-15.5); LYMPH # 3.9 10^3/uL (1.5-5.0); LYMPH % 40.3 % (24.0-44.0); MEAN CORPUSCULAR HEMOGLOBIN 29.2 pg (27.0-33.0); MEAN CORPUSCULAR HGB CONC 32.4 g/dl (32.0-36.5); MEAN CORPUSCULAR VOLUME 90.1 fl (80.0-96.0); MONO # 0.7 10^3/uL (0.0-0.8); MONO % 7.2 % (2.0-8.0); NEUTROPHILS # 4.6 10^3/uL (1.5-8.5); NEUTROPHILS % 47.8 % (36.0-66.0); PLATELET COUNT, AUTOMATED 321 10^3/uL (150-450); RED BLOOD COUNT 5.34 10^6/uL (4.00-5.40); WHITE BLOOD COUNT 9.7 10^3/uL (4.0-10.0)
[2020-11-15 13:17] LABS: ALBUMIN 3.7 GM/DL (3.2-5.2); ALT/SGPT 18 U/L (12-78); BILIRUBIN,TOTAL 0.4 MG/DL (0.2-1.0); BLOOD UREA NITROGEN 15 MG/DL (7-18); CALCIUM LEVEL 8.8 MG/DL (8.5-10.1); CARBON DIOXIDE LEVEL 29 MEQ/L (21-32); CHLORIDE LEVEL 108 MEQ/L (98-107); CHOLESTEROL LEVEL 201 MG/DL (<200); CREATININE FOR GFR 0.69 MG/DL (0.55-1.30); FREE T4 0.91 NG/DL (0.76-1.46); GLOMERULAR FILTRATION RATE > 60.0 (>51); GLUCOSE, FASTING 85 MG/DL (70-100); HDL CHOLESTEROL 60 MG/DL (>40); LDL CHOLESTEROL 113 MG/DL (<100); NON-HDL-C 141 MG/DL; POTASSIUM SERUM 4.4 MEQ/L (3.5-5.1); SODIUM LEVEL 141 MEQ/L (136-145); TOTAL PROTEIN 6.7 GM/DL (6.4-8.2); TRIGLYCERIDES LEVEL 138 MG/DL (<150)
== END ==
LOC: M LABDRWAD 12:24
PROVIDERS: ATTEND Family Medicine
DX: E55.9 Vitamin D deficiency, unspecified (principal); Z13.220 Encounter for screening for lipoid disorders; Z13.29 Encounter for screening for other suspected endocrine disorder; Z13.0 Encounter for screening for diseases of the blood and blood-forming organs and certain disorders involving the immune mechanism

== ENCOUNTER → 2020-11-22 | Outpatient (REF) | payer BC | LOC: M LAB REF 16:57 | PROVIDERS: ATTEND Family Medicine | DX: R30.0 Dysuria (principal) ==

== ENCOUNTER → 2021-03-22 | Outpatient (REF) | payer BC | LOC: M LAB REF 16:53 | PROVIDERS: ATTEND Family Medicine | DX: N39.3 Stress incontinence (female) (male) (principal) ==

== ENCOUNTER → 2021-04-18 | Outpatient (CLI) | payer BC ==
--- NOTE | 2021-04-18 09:04 | REPMRS ---
Patient History The patient states she has not had a clinical breast exam in over a year. Family history of breast cancer at age 60 in paternal aunt. Reconstructions of both breasts, November 2019. Reductions of both breasts, July 05, 2016. Benign ultrasound-guided FNA biopsy of the right breast, 2001. No Hormone Replacement Therapy Patient states no breast complaints today. Patient has signed MRS History Sheet. Digital Woman Screen Mammo: April 18, 2021 - Exam #: [id number] Bilateral CC and MLO view(s) were taken. Technologist: Rosemarie Byrd Technologist Prior study comparison: February 21, 2020, bilateral digital woman screen mammo performed at [facility]. January 06, 2019, bilateral digital woman screen mammo performed at [facility]. January 05, 2018, bilateral digital woman screen mammo performed at [facility]. FINDINGS: The breast tissue is heterogeneously dense. This may lower the sensitivity of mammography. The Volpara volumetric breast density category is: C. There is a well-circumscribed 19 mm jacki density in the left breast superiorly at approximately 12 o'clock. This merits further evaluation. There is a moderate amount of heterogeneously dense fibroglandular tissue which is fairly symmetric. There is no other interval development of dominant mass, architectural distortion, or grouped microcalcification typical of malignancy. There has been no other change in the appearance of the mammogram from the prior studies. 3-D tomosynthesis shows no additional findings. Assessment: BI-RADS/ACR category 0 mammogram, Incomplete: Need additional imaging evaluation and/or prior mammograms for comparison. Recommendation Ultrasound and special view mammogram of the left breast. This patient's [facility] Lifetime Breast Cancer RIsk is estimated at 12.6 %. This mammogram was interpreted with the aid of an FDA-approved computer-aided dectection system. Electronically Signed By: Augustus Lezama MD 04/18/21 0904
== END ==
LOC: M WHC 07:35
PROVIDERS: ATTEND Family Medicine
DX: R92.8 Other abnormal and inconclusive findings on diagnostic imaging of breast (principal)

== ENCOUNTER → 2021-05-04 | Outpatient (CLI) | payer BC ==
--- NOTE | 2021-05-04 12:13 | REP ---
INDICATION: LEFT BREAST ADD VIEWS. COMPARISON: 04/18/2021 as well as other prior exams. TECHNIQUE: Multiple spot compression views left breast performed including a left mL tomographic sequence. Focused left breast ultrasound performed at 12 o'clock. FINDINGS: Persistence of a smoothly marginated 19 mm nodule at the 12 o'clock position of the left breast, approximately 3-4 cm from the nipple. Focused left breast ultrasound at 12 o'clock demonstrates a simple cyst 12 x 11 x 15 mm, average KP a value 11.8 with elastography interrogation. Incidental note is made of a simple cyst at 2 o'clock measuring 6 mm in diameter, KP a 22.4. IMPRESSION: BIRADS/ACR category 2, benign. The nodule at 12 o'clock left breast corresponds to a simple benign cyst by ultrasound. This mammogram was interpreted with the aid of an FDA-approved computer-aided detection system. The patient letter being requested is M 1. RECOMMENDATION: Repeat screening mammography recommended 1 year (for women over 40). <Electronically signed by Tae Wang > 05/04/21 [id number]
== END ==
LOC: M WHC 09:56
PROVIDERS: ATTEND Family Medicine
DX: N60.02 Solitary cyst of left breast (principal); R92.8 Other abnormal and inconclusive findings on diagnostic imaging of breast
CPT/HCPCS: 76642; 77065; G0279

== ENCOUNTER → 2021-08-10 | Outpatient (CLI) | payer BC | LOC: M LABSMTC 10:54 | PROVIDERS: ATTEND Anesthesiology | DX: Z01.812 Encounter for preprocedural laboratory examination (principal); Z20.822 Contact with and (suspected) exposure to COVID-19 ==

== ENCOUNTER → 2021-08-24 | Outpatient (CLI) | payer BC | LOC: M LABSMTC 11:01 | PROVIDERS: ATTEND Anesthesiology | DX: Z01.812 Encounter for preprocedural laboratory examination (principal); Z20.822 Contact with and (suspected) exposure to COVID-19 ==

== ENCOUNTER 2021-08-29 09:19 | Day surgery (SDC) | payer BC ==
[~2021-08-29] VITALS: Ht 160 cm; Wt 77.5 kg
[~2021-08-29 09:19] MED LIST: NS 1,000 ML IV ONE
[2021-08-29] MEDS ORDERED: LIDOCAINE 2% 100MG/5ML SDV (FOR ANES.) As Ordered ONE (10:52)
[2021-08-29] MEDS ORDERED: propofoL 200 MG/20 ML VIAL As Ordered ONE (10:52)
[2021-08-29 11:51] VITALS: BP 130/77
== END 2021-08-29 12:01 | disposition home or self-care (01) ==
LOC: M OPP 09:19
PROVIDERS: ATTEND Surgery
DX: Z12.11 Encounter for screening for malignant neoplasm of colon (principal); Z86.010 Personal history of colon polyps; K57.30 Diverticulosis of large intestine without perforation or abscess without bleeding; K64.0 First degree hemorrhoids

== ENCOUNTER → 2021-12-19 | Outpatient (CLI) | payer BC ==
[2021-12-19 13:13] LABS: BASO # 0.1 10^3/uL (0.0-0.2); BASO % 1.2 % (0.0-1.0); EOS # 0.2 10^3/uL (0.0-0.5); EOS % 3.2 % (0.0-3.0); HEMOGLOBIN 16.2 g/dl (12.0-15.5); LYMPH # 3.2 10^3/uL (1.5-5.0); LYMPH % 44.2 % (24.0-44.0); MEAN CORPUSCULAR HEMOGLOBIN 30.2 pg (27.0-33.0); MEAN CORPUSCULAR HGB CONC 33.1 g/dl (32.0-36.5); MEAN CORPUSCULAR VOLUME 91.4 fl (80.0-96.0); MONO # 0.5 10^3/uL (0.0-0.8); MONO % 7.1 % (2.0-8.0); NEUTROPHILS # 3.2 10^3/uL (1.5-8.5); NEUTROPHILS % 43.6 % (36.0-66.0); PLATELET COUNT, AUTOMATED 333 10^3/uL (150-450); RED BLOOD COUNT 5.36 10^6/uL (4.00-5.40); WHITE BLOOD COUNT 7.3 10^3/uL (4.0-10.0)
[2021-12-19 13:28] LABS: HEMOGLOBIN A1c 5.3 %
[2021-12-19 13:51] LABS: ALT/SGPT 25 U/L (12-78); BILIRUBIN,TOTAL 0.5 MG/DL (0.2-1.0); BLOOD UREA NITROGEN 15 MG/DL (7-18); CALCIUM LEVEL 9.7 MG/DL (8.5-10.1); CARBON DIOXIDE LEVEL 30 MEQ/L (21-32); CHLORIDE LEVEL 107 MEQ/L (98-107); CREATININE FOR GFR 0.75 MG/DL (0.55-1.30); FREE T4 0.88 NG/DL (0.76-1.46); GLOMERULAR FILTRATION RATE > 60.0 (>51); GLUCOSE, FASTING 98 MG/DL (70-100); POTASSIUM SERUM 4.8 MEQ/L (3.5-5.1); SODIUM LEVEL 142 MEQ/L (136-145); TOTAL 25(OH) VITAMIN D 21.2 NG/ML (30.0-100.0); TOTAL PROTEIN 7.3 GM/DL (6.4-8.2)
== END ==
LOC: M ADAMS 08:14
PROVIDERS: ATTEND Family Medicine
DX: E88.81 Metabolic syndrome and other insulin resistance (principal); E55.9 Vitamin D deficiency, unspecified; K21.9 Gastro-esophageal reflux disease without esophagitis

== ENCOUNTER → 2022-02-22 | Outpatient (REF) | payer BC | LOC: M LAB REF 15:20 | PROVIDERS: ATTEND Physician Assistant | DX: N39.0 Urinary tract infection, site not specified (principal) ==

== ENCOUNTER → 2022-04-16 | Outpatient (CLI) | payer BC ==
[2022-04-16 13:40] LABS: BASO # 0.1 10^3/uL (0.0-0.2); BASO % 1.1 % (0.0-1.0); EOS # 0.2 10^3/uL (0.0-0.5); EOS % 1.8 % (0.0-3.0); HEMATOCRIT 48.7 % (36.0-47.0); HEMOGLOBIN 16.2 g/dl (12.0-15.5); LYMPH # 3.8 10^3/uL (1.5-5.0); LYMPH % 45.1 % (24.0-44.0); MEAN CORPUSCULAR HEMOGLOBIN 29.9 pg (27.0-33.0); MEAN CORPUSCULAR HGB CONC 33.3 g/dl (32.0-36.5); MONO # 0.6 10^3/uL (0.0-0.8); MONO % 6.7 % (2.0-8.0); NEUTROPHILS # 3.8 10^3/uL (1.5-8.5); NEUTROPHILS % 44.9 % (36.0-66.0); PLATELET COUNT, AUTOMATED 329 10^3/uL (150-450); RED BLOOD COUNT 5.41 10^6/uL (4.00-5.40); WHITE BLOOD COUNT 8.4 10^3/uL (4.0-10.0)
[2022-04-16 14:18] LABS: INR 0.86; PROTHROMBIN TIME 12.1 SECONDS (12.7-14.5)
[2022-04-16 14:19] LABS: ALBUMIN 4.3 GM/DL (3.2-5.2); ALT/SGPT 33 U/L (12-78); BILIRUBIN,TOTAL 0.4 MG/DL (0.2-1.0); BLOOD UREA NITROGEN 14 MG/DL (7-18); CALCIUM LEVEL 9.4 MG/DL (8.5-10.1); CARBON DIOXIDE LEVEL 30 MEQ/L (21-32); CHLORIDE LEVEL 105 MEQ/L (98-107); CREATININE FOR GFR 0.85 MG/DL (0.55-1.30); GLOMERULAR FILTRATION RATE > 60.0 (>51); GLUCOSE, FASTING 105 MG/DL (70-100); POTASSIUM SERUM 4.4 MEQ/L (3.5-5.1); SODIUM LEVEL 139 MEQ/L (136-145); TOTAL PROTEIN 7.8 GM/DL (6.4-8.2)
== END ==
LOC: M PLALAB 10:03
PROVIDERS: ATTEND Family Medicine
DX: Z01.818 Encounter for other preprocedural examination (principal)

== ENCOUNTER → 2022-04-18 | Outpatient (CLI) | payer BC ==
[2022-04-18 10:25] LABS: BASO # 0.1 10^3/uL (0.0-0.2); BASO % 1.4 % (0.0-1.0); EOS # 0.2 10^3/uL (0.0-0.5); EOS % 2.9 % (0.0-3.0); HEMATOCRIT 46.5 % (36.0-47.0); HEMOGLOBIN 14.9 g/dl (12.0-15.5); LYMPH # 2.6 10^3/uL (1.5-5.0); LYMPH % 46.7 % (24.0-44.0); MEAN CORPUSCULAR HEMOGLOBIN 28.8 pg (27.0-33.0); MEAN CORPUSCULAR VOLUME 89.9 fl (80.0-96.0); MONO # 0.4 10^3/uL (0.0-0.8); MONO % 7.1 % (2.0-8.0); NEUTROPHILS # 2.3 10^3/uL (1.5-8.5); NEUTROPHILS % 41.5 % (36.0-66.0); PLATELET COUNT, AUTOMATED 313 10^3/uL (150-450); RED BLOOD COUNT 5.17 10^6/uL (4.00-5.40); WHITE BLOOD COUNT 5.5 10^3/uL (4.0-10.0)
== END ==
LOC: M PLALAB 08:35
PROVIDERS: ATTEND Family Medicine
DX: Z01.818 Encounter for other preprocedural examination (principal)

== ENCOUNTER → 2022-04-24 | Outpatient (CLI) | payer BC ==
[2022-04-24 17:09] LABS: HEMOGLOBIN A1c 5.4 %
[2022-04-24 17:15] LABS: FERRITIN 194 NG/ML (8-252); FREE T4 0.91 NG/DL (0.76-1.46); IRON (FE) 82 UG/DL (50-170); PERCENT SATURATION 23.1 % (13.2-45.0); RHEUMATOID FACTOR QUANT < 10.0 IU/ML (<15.0); TOTAL IRON BINDING CAPACITY 355 UG/DL (250-450)
[2022-04-24 17:37] LABS: VITAMIN B12 LEVEL 626 PG/ML (247-911)
== END ==
LOC: M WUC 13:44
PROVIDERS: ATTEND Psychiatry & Neurology Neurology
DX: R20.2 Paresthesia of skin (principal); E55.9 Vitamin D deficiency, unspecified; E11.9 Type 2 diabetes mellitus without complications

== ENCOUNTER → 2022-05-10 | Outpatient (CLI) | payer BC | LOC: M WHC 07:42 | PROVIDERS: ATTEND Family Medicine | DX: Z12.31 Encounter for screening mammogram for malignant neoplasm of breast (principal) ==

== ENCOUNTER → 2023-05-14 | Outpatient (CLI) | payer BC | LOC: M WHC 08:03 | PROVIDERS: ATTEND Physician Assistant | DX: R92.333 Mammographic heterogeneous density, bilateral breasts (principal); Z12.31 Encounter for screening mammogram for malignant neoplasm of breast; Z98.890 Other specified postprocedural states ==

== ENCOUNTER → 2023-08-11 | Outpatient (CLI) | payer BC | LOC: M PLARAD 11:50 | PROVIDERS: ATTEND Family Medicine | DX: N23 Unspecified renal colic (principal) ==

== ENCOUNTER → 2023-08-12 | Outpatient (CLI) | payer BC | LOC: M RAD 08:02 | PROVIDERS: ATTEND Family Medicine | DX: N23 Unspecified renal colic (principal) ==

== ENCOUNTER → 2024-06-17 | Outpatient (CLI) | payer BC | LOC: M WHC 08:07 | PROVIDERS: ATTEND Family Medicine | DX: Z12.31 Encounter for screening mammogram for malignant neoplasm of breast (principal) ==

== ENCOUNTER → 2025-06-20 | Outpatient (CLI) | payer BC | LOC: M WHC 07:39 | PROVIDERS: ATTEND Family Medicine | DX: Z12.31 Encounter for screening mammogram for malignant neoplasm of breast (principal); Z13.820 Encounter for screening for osteoporosis; M81.0 Age-related osteoporosis without current pathological fracture ==